=== PATIENT | male | born 1955 | race Caucasian/White ===

== ENCOUNTER 2020-02-01 11:01 | Inpatient (IN) | payer MEDICARE, OTHER ==
[~2020-02-01] VITALS: Ht 177.8 cm; Wt 84.5 kg
[2020-02-01 11:21] LABS: BASOPHILS % (AUTO) 0.6 % (0.0-5.0); EOSINOPHILS % (AUTO) 1.2 % (0.0-8.0); HEMATOCRIT 36.7 % (42-54); LYMPHOCYTES % (AUTO) 30.8 % (21.0-51.0); MEAN CORPUSCULAR HEMOGLOBIN 31.9 pg (27.0-33.0); MEAN CORPUSCULAR HGB CONC 35.4 g/dL (32.0-36.0); MONOCYTES % (AUTO) 10.5 % (3.0-13.0); NEUTROPHILS % (AUTO) 56.6 % (40.0-77.0); PLATELET COUNT (AUTO) 63 K/uL (130-400); RED BLOOD CELL COUNT(AUTO) 4.08 MIL/uL (4.50-6.20); RED CELL DISTRIBUTION WIDTH 12.5 % (11.0-15.5); WHITE BLOOD COUNT (AUTO) 3.3 K/uL (4.8-10.8)
[2020-02-01 11:24] LABS: CARBON DIOXIDE 23 mmol/L (21-32); CHLORIDE 96 mmol/L (101-111); CREATININE 0.9 mg/dL (0.5-1.5); GLOMERULAR FILTR. RATE CALC 90 mL/min (>60); GLUCOSE,RANDOM 137 mg/dL (70-105); POTASSIUM 3.7 mmol/L (3.5-5.1); SODIUM SERUM 132 mmol/L (136-145); UREA NITROGEN, BLOOD 8 mg/dL (7-18)
[2020-02-01 11:28] LABS: ALANINE AMINOTRANSFERASE 382 U/L (12-78); ASPARTATE AMINOTRANSFERASE 459 U/L (10-37); TOTAL PROTEIN, SERUM 6.6 g/dL (6.0-8.3)
[2020-02-01 11:31] LABS: INR 0.95 (0.85-1.15); PARTIAL THROMBOPLASTIN TIME 26.9 SEC (26.3-35.5); PROTHROMBIN TIME 10.3 SEC (9.6-11.6)
[2020-02-01 11:41] LABS: ALCOHOL, BLOOD < 3 mg/dL (0-10)
[2020-02-01] MEDS ORDERED: MAGNESIUM HYDROXIDE 30 ML/UDCUP ONE (12:51)
[2020-02-01] MEDS ORDERED: LIDOCAINE HCL 2% VISCOUS 15 ML UDCUP ONE ×2 (12:51→14:46)
[2020-02-01] MEDS ORDERED: NITROGLYCERIN 1GM/1 INCH PACKET TD ONE (12:51)
[2020-02-01] MEDS ORDERED: SODIUM CHLORIDE 0.9% 500ML 500 ML IV ONE (12:52)
[2020-02-01] MEDS ORDERED: MAG HYDROX/AL HYDROX/SIMETH ES 30 ML SUSP UDCUP ONE (14:46)
[2020-02-01] MEDS ORDERED: CHLORDIAZEPOXIDE HCL 25 MG CAP PO PRN (15:30)
[2020-02-01] MEDS ORDERED: LORAZEPAM 2 MG/ML 1 ML VIAL IVP PRN (15:30)
[2020-02-01] MEDS ORDERED: PROMETHAZINE HCL 25 MG TABLET PO PRN (15:30)
[2020-02-01] MEDS ORDERED: PHARMACY COMMUNICATION MISC PRN (15:30)
[2020-02-01] MEDS ORDERED: ONDANSETRON HCL 4 MG/2 ML VIAL IV PRN (15:30)
[2020-02-01] MEDS ORDERED: IOHEXOL 350 MG/ML 100ML INFUS..BTL IV ONE (15:31)
[2020-02-01] MEDS ORDERED: LORAZEPAM 2 MG/ML 1 ML VIAL ONE (17:19)
[2020-02-01 20:28] VITALS: BP 133/88
--- NOTE | 2020-02-01 21:09 | NUR ---
ernesto from [facility] [place] at the bedside. told him about patient's temperature of 100.8. he allows me to give acetaminophen to patient po.
[2020-02-01] MEDS: ACETAMINOPHEN EXTRA STRENGTH 500 MG TABLET PO PRN (21:13)
[2020-02-01] MEDS ORDERED: PANTOPRAZOLE 40 MG/VIAL IVP SCH (21:46)
[2020-02-01 22:24] LABS: CRP QUANTITATIVE 29.9 mg/L (0.00-9.0)
[2020-02-01 23:30] VITALS: BP 113/59
[2020-02-02] VITALS (12 sets, daily range): BP systolic 128–153; BP diastolic 65–97
[2020-02-02] MEDS: ZOSYN 3.375GM+NS 50ML 50 ML IV SCH ×4 (00:46→19:19)
[2020-02-02 00:56] LABS: BILIRUBIN,URINE Negative (NEGATIVE); COLOR,URINE Yellow (YELLOW); GLUCOSE, URINE (UA) Negative (NEGATIVE); KETONES,URINE 15 mg/dL (NEGATIVE); LEUKOCYTE ESTERASE ,URINE Negative (NEGATIVE); NITRATE,URINE Negative (NEGATIVE); OCCULT BLOOD,URINE Negative (NEGATIVE); PH,URINE 6.5 (5.0-8.0); PROTEIN,URINE Negative (NEGATIVE); UROBILINOGEN,URINE 0.2 mg/dL (0.2-1.0)
[2020-02-02 01:04] LABS: APPEARANCE,URINE CLEAR (CLEAR)
[2020-02-02 01:16] LABS: BACTERIA,URINE Rare /HPF (None Seen); RBC,URINE 0-1 /HPF (0-1); SQUAMOUS EPITHELIAL CELL,UR 0-2 /HPF (0-2); WBC,URINE None Seen /HPF (0-1)
[2020-02-02 01:25] LABS: AMPHET/METH SCREEN,URINE NEGATIVE (NEGATIVE); BARBITURATE SCREEN, URINE NEGATIVE (NEGATIVE); BENZODIAZEPINES SCREEN,URINE NEGATIVE (NEGATIVE); CANNABINOID SCREEN,URINE NEGATIVE (NEGATIVE); COCAINE SCREEN,URINE NEGATIVE (NEGATIVE); OPIATE SCREEN,URINE NEGATIVE (NEGATIVE); PHENCYCLIDINE SCREEN,URINE NEGATIVE (NEGATIVE)
[2020-02-02 06:21] LABS: BASOPHILS % (AUTO) 0.2 % (0.0-5.0); EOSINOPHILS % (AUTO) 0.7 % (0.0-8.0); HEMATOCRIT 34.4 % (42-54); LYMPHOCYTES % (AUTO) 20.5 % (21.0-51.0); MEAN CORPUSCULAR HEMOGLOBIN 31.8 pg (27.0-33.0); MEAN CORPUSCULAR HGB CONC 34.9 g/dL (32.0-36.0); MEAN CORPUSCULAR VOLUME 91.2 fL (79-99); MONOCYTES % (AUTO) 11.7 % (3.0-13.0); NEUTROPHILS % (AUTO) 66.4 % (40.0-77.0); PLATELET COUNT (AUTO) 62 K/uL (130-400); RED BLOOD CELL COUNT(AUTO) 3.77 MIL/uL (4.50-6.20); RED CELL DISTRIBUTION WIDTH 12.8 % (11.0-15.5); WHITE BLOOD COUNT (AUTO) 4.1 K/uL (4.8-10.8)
[2020-02-02 06:45] LABS: ALBUMIN 2.9 g/dL (3.5-5.0); BILIRUBIN,TOTAL 1.6 mg/dL (0.2-1.0); CREATININE 0.9 mg/dL (0.5-1.5); POTASSIUM 3.4 mmol/L (3.5-5.1); TOTAL PROTEIN, SERUM 6.2 g/dL (6.0-8.3)
--- NOTE | 2020-02-02 08:00 | NUR ---
AM SHIFT ASSESSMENT. NPO FOR EGD TODAY, SLEEPING NOW, SOME CONFUSION REPORTED BY NIGHT CREW.
[2020-02-02] MEDS: FAMOTIDINE/PF 20 MG/2 ML VIAL IV SCH ×2 (08:57→19:19)
[2020-02-02] MEDS ORDERED: PANTOPRAZOLE 40 MG/VIAL IVP SCH (09:00)
[2020-02-02] MEDS: THIAMINE HCL 100 MG, FOLIC ACID 1 MG, M.V.I. IV [ADULT] 10 ML in SODIUM CHLORIDE 0.9% 1... IV SCH (09:24)
--- NOTE | 2020-02-02 09:43 | NUR ---
DR. BRUNSON IN TO SEE PT. NEURO EVAL. REQUESTED FOR AMS.
--- NOTE | 2020-02-02 11:47 | NUR ---
CONTINUES TO BE VERY CONFUSED, HAS ALREADY PULLED OUT 3 IVS THIS AM
--- NOTE | 2020-02-02 12:30 | NUR ---
DR. DEL TORO IN TO SEE PT. UPPER AIRWAY EVAL DONE AT BEDSIDE. NO ABN, FINDINGS.
--- NOTE | 2020-02-02 13:55 | NUR ---
NEW IV SITE NOW, 20G RT. HAND.
--- NOTE | 2020-02-02 14:00 | NUR ---
NO IV ACCESS, PULLED IT OUT FOR THE 3RD. TIME TODAY
--- NOTE | 2020-02-02 14:35 | NUR ---
TERA INITIAL WAS GOING TO MEET WITH PATIENT IN ROOM WHEN BED ALARM SOUNDED OFF, WALKED INTO ROOM AND FOUND PATIENT OUT OF BED, HAD SWUNG LEGS OVER SIDE RAILS, WAS STANDING UP AND WALKING BACKWARDS WITH AN UNSTEADY BALANCE. ASSISTED PATIENT TO CHAIR AT BEDSPR. NOTED BLEEDING FROM ARM AND IV SALINE LOCK ON BED, PATIENT STATES HE YANKED IT BECAUSE HE DIDNT KNOW WHAT IT WAS. NURSE CALLED AND PRESSURE APPLIED TO HAND. NOTED CONFUSION AND RESTLESSNESS. INFORMED CHARGE NURSE, CHINO WARNER RN, ABOUT CONFUSION AND POSSIBLE 1:1 MONITORING. CALLED SPOUSE FOR INITIAL ASSESSMENT QUESTIONS. PER SPOUSE, PATIENT WAS INDEPENDENT WITH ADLS AT HOME, LIVES WITH SPOUSE, NO COMMUNITY SERVICES PRIOR TO ADMISSION, NO DME IN USE AT HOME, AND PER FEELS SAFE FOR PATIENT TO RETURN HOME ONCE RETURN TO BASELINE. DISPOSITION IS HOME. Addendum: 02/02/20 at 1440 by PARRIS SCHAEFER RN CM Amended: Links added.
[2020-02-02] MEDS ORDERED: POTASSIUM CHLORIDE 20 MEQ ERTAB PO PRN (19:15)
[2020-02-02] MEDS ORDERED: POTASSIUM CHLORIDE 20MEQ/100ML 100 ML IV PRN ×2 (19:15)
[2020-02-02] MEDS ORDERED: LIDOCAINE HCL-MPF 1% 2ML VIAL IV PRN ×2 (19:15)
[2020-02-02] MEDS ORDERED: PROPOFOL 10 MG/ML 20ML VIAL IV ONE (20:20)
[2020-02-02] MEDS ORDERED: LIDOCAINE HCL-MPF 2% 5ML VIAL ONE (20:21)
[2020-02-02] MEDS: POTASSIUM CHLORIDE 10% ELIXIR 20 MEQ/15 ML UDCUP PO PRN (21:32)
[2020-02-03] VITALS (7 sets, daily range): BP systolic 110–144; BP diastolic 72–84
[2020-02-03] MEDS: POTASSIUM CHLORIDE 10% ELIXIR 20 MEQ/15 ML UDCUP PO PRN (02:01)
[2020-02-03] MEDS: ZOSYN 3.375GM+NS 50ML 50 ML IV SCH ×3 (04:54→20:49)
[2020-02-03 05:38] LABS: HEMATOCRIT 36.6 % (42-54); MEAN CORPUSCULAR HEMOGLOBIN 32.4 pg (27.0-33.0); MEAN CORPUSCULAR HGB CONC 34.4 g/dL (32.0-36.0); MEAN CORPUSCULAR VOLUME 94.1 fL (79-99); PLATELET COUNT (AUTO) 75 K/uL (130-400); RED BLOOD CELL COUNT(AUTO) 3.89 MIL/uL (4.50-6.20); RED CELL DISTRIBUTION WIDTH 13.3 % (11.0-15.5); WHITE BLOOD COUNT (AUTO) 3.7 K/uL (4.8-10.8)
[2020-02-03 05:49] LABS: ALBUMIN 2.9 g/dL (3.5-5.0); BILIRUBIN,TOTAL 1.4 mg/dL (0.2-1.0); POTASSIUM 4.1 mmol/L (3.5-5.1); TOTAL PROTEIN, SERUM 6.4 g/dL (6.0-8.3)
[2020-02-03 05:56] LABS: BAND NEUTROPHILS % (MANUAL) 6 % (0-2); BASOPHILS % (MANUAL) 2 % (0-2); EOSINOPHILS % (MANUAL) 1 % (1-6); LYMPHOCYTES % (MANUAL) 39 % (22-44); MONOCYTES % (MANUAL) 10 % (2-9); REACTIVE LYMPHOCYTES 3 % (0-0); SEGMENTED NEUTROPHILS % 39 % (40-70)
[2020-02-03 05:57] LABS: MAN.DIFF COMMENT-IMPRESSION MANUAL DIFFERENTIAL
[2020-02-03] MEDS: PANTOPRAZOLE SODIUM 40 MG TABLET.DR PO SCH (06:24)
[2020-02-03] MEDS ORDERED: PANTOPRAZOLE SODIUM 40 MG TABLET.DR ONE (06:24)
[2020-02-03 08:12] LABS: HEPATITIS A ANTIBODY IGM Negative (Negative); HEPATITIS B CORE IGM Negative (Negative); HEPATITIS Bs ANTIGEN SCREEN P Negative (Negative)
[2020-02-03] MEDS: FAMOTIDINE/PF 20 MG/2 ML VIAL IV SCH ×2 (08:56→20:49)
[2020-02-03] MEDS: THIAMINE HCL 100 MG, FOLIC ACID 1 MG, M.V.I. IV [ADULT] 10 ML in SODIUM CHLORIDE 0.9% 1... IV SCH ×2 (09:14→17:11)
[2020-02-03] MEDS: ACETAMINOPHEN EXTRA STRENGTH 500 MG TABLET PO PRN (21:00)
[2020-02-04 03:40] VITALS: BP 127/76
[2020-02-04] MEDS: ZOSYN 3.375GM+NS 50ML 50 ML IV SCH (06:00)
[2020-02-04 06:11] LABS: BASOPHILS % (AUTO) 0.7 % (0.0-5.0); EOSINOPHILS % (AUTO) 2.7 % (0.0-8.0); HEMATOCRIT 35.7 % (42-54); LYMPHOCYTES % (AUTO) 40.4 % (21.0-51.0); MEAN CORPUSCULAR HEMOGLOBIN 31.8 pg (27.0-33.0); MEAN CORPUSCULAR HGB CONC 33.9 g/dL (32.0-36.0); MEAN CORPUSCULAR VOLUME 93.9 fL (79-99); MONOCYTES % (AUTO) 19.6 % (3.0-13.0); NEUTROPHILS % (AUTO) 36.2 % (40.0-77.0); PLATELET COUNT (AUTO) 109 K/uL (130-400); RED CELL DISTRIBUTION WIDTH 13.2 % (11.0-15.5); WHITE BLOOD COUNT (AUTO) 4.5 K/uL (4.8-10.8)
[2020-02-04 06:20] LABS: CREATININE 0.9 mg/dL (0.5-1.5); POTASSIUM 3.8 mmol/L (3.5-5.1)
[2020-02-04 08:00] VITALS: BP 147/81
[2020-02-04] MEDS: PANTOPRAZOLE SODIUM 40 MG TABLET.DR PO SCH (08:05)
[2020-02-04] MEDS: FAMOTIDINE/PF 20 MG/2 ML VIAL IV SCH (08:05)
[2020-02-04 10:31] VITALS: BP 144/88
[2020-02-04] MEDS ORDERED: PANT40TA PO (12:07)
[2020-02-04] MEDS ORDERED: FOLI0.4T2 PO (12:07)
[2020-02-04] MEDS ORDERED: THIA500T3 PO (12:07)
== END 2020-02-04 13:45 | disposition home or self-care (01) | DRG 432 ==
LOC: EDH 11:01 → EDHIP 14:37 → OBSVTOIN 14:37 → 3DH 18:58 → 3BH 20:40
PROVIDERS: ADMIT Internal Medicine; ATTEND Internal Medicine
PROC: 0DB98ZX Excision of Duodenum, Via Natural or Artificial Opening Endoscopic, Diagnostic (ICD-10-PCS; principal; 2020-02-02)
PROC: 0DB68ZX Excision of Stomach, Via Natural or Artificial Opening Endoscopic, Diagnostic (ICD-10-PCS; 2020-02-02)
DX: K70.10 Alcoholic hepatitis without ascites (principal); G92 Toxic encephalopathy; D61.818 Other pancytopenia; E87.1 Hypo-osmolality and hyponatremia; I10 Essential (primary) hypertension; K74.60 Unspecified cirrhosis of liver; K76.0 Fatty (change of) liver, not elsewhere classified; F10.10 Alcohol abuse, uncomplicated; K21.0 Gastro-esophageal reflux disease with esophagitis; K44.9 Diaphragmatic hernia without obstruction or gangrene; K29.00 Acute gastritis without bleeding; K29.80 Duodenitis without bleeding; Y90.0 Blood alcohol level of less than 20 mg/100 ml; K31.89 Other diseases of stomach and duodenum; K22.8 Other specified diseases of esophagus; Z91.81 History of falling
CPT/HCPCS: 36415; 43239; 70450; 70491; 71045; 71260; 74176; 76705; 80048; 80053; 80074; 80305; 81001; 82105; 82378; 83690; 83735; 84145; 84484; 85025; 85610; 85730; 86140; 86316; 86677; 87040; 87088; 88305; 88342; 93005; A6453; C9113; G0378; G0480; J2060; J2543; J2704; J3411; J3490; J7030; J7040; Q9967